=== PATIENT | male | born 1955 | race Caucasian/White ===

== ENCOUNTER 2016-08-17 19:22 | Emergency (ER) | payer MEDICAID, OTHER ==
[2016-08-17] MEDS ORDERED: HYDROcodone/APAP PREPAC 5/325 1 TAB TABLET PO ONE (20:25)
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
[2016-08-17] MEDS ORDERED: ONDANSETRON ODT PREPAC 4 MG TAB.RAPDIS PO ONE (20:30)
== END 2016-08-17 20:28 | disposition home or self-care (01) ==
LOC: ER 19:22
DX: S82.65XA Nondisplaced fracture of lateral malleolus of left fibula, initial encounter for closed fracture (principal); V03.00XA Pedestrian on foot injured in collision with car, pick-up truck or van in nontraffic accident, initial encounter; Y92.89 Other specified places as the place of occurrence of the external cause; Y93.89 Activity, other specified
CPT/HCPCS: 99284

== ENCOUNTER 2016-08-21 11:37 | Day surgery (SDC) | payer MEDICAID, OTHER ==
[2016-08-21] MEDS ORDERED: FENTANYL 100 MCG/2 ML VIAL IV PRN ×3 (11:42→11:59)
[2016-08-21] MEDS ORDERED: LIDOCAINE HCL 1% 20 ML VIAL SUBCUT ONE ×2 (11:42→11:59)
[2016-08-21] MEDS ORDERED: HYDROcodone/APAP 5/325 MG 1 TAB TABLET PO PRN (11:59)
[2016-08-21] MEDS ORDERED: HYDROmorphone HCL 1 MG/ML SYR IV PRN (11:59)
[2016-08-21] MEDS ORDERED: ONDANSETRON HCL 4 MG/2 ML VIAL IV PRN (11:59)
[2016-08-21] MEDS ORDERED: ceFAZolin 1 GM in NORMAL SALINE MINI-BAG+ 100 ML IV ONE (11:59)
[2016-08-21] MEDS ORDERED: LACTATED RINGERS 1,000 ML IV SCH ×3 (12:00)
[2016-08-21] MEDS ORDERED: FENTANYL 250 MCG/5 ML VIAL ONE (12:39)
[2016-08-21] MEDS ORDERED: BUPIVACAINE HCL/PF 0.25% 10 ML VIAL INJ ONE (12:40)
[2016-08-21] MEDS ORDERED: BUPIVACAINE/EPI 0.25% 1 VIAL VIAL ONE (12:44)
[2016-08-21] MEDS ORDERED: DEXAMETHASONE 4 MG/ML VIAL ONE (13:04)
[2016-08-21] MEDS ORDERED: ONDANSETRON HCL 4 MG/2 ML VIAL ONE (13:04)
[2016-08-21] MEDS ORDERED: KETOROLAC TROMETHAMINE 30 MG/ML VIAL ONE (13:40)
[2016-08-21 14:23] VITALS: TEMP 97.7
[2016-08-21 14:30] VITALS: O2SAT 94
[2016-08-21 14:59] VITALS: BP 130/79; PULSE 78; RESP 16
--- NOTE | 2016-08-21 15:19 | RADIOLOGY REPORT ---
Four limited views of the left ankle from the C-Arm in the operating room are compared with prior films dated 08/17/2016. There has been interval open reduction and internal fixation of the distal fibula fracture, which is secured with a plate and multiple screws. No other change is identified. IMPRESSION Interval open reduction and internal fixation of the left distal fibula fracture. MTDD
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
== END 2016-08-21 15:10 | disposition home or self-care (01) ==
LOC: SDS 11:37
PROVIDERS: ATTEND Orthopaedic Surgery
DX: S82.62XA Displaced fracture of lateral malleolus of left fibula, initial encounter for closed fracture (principal); V09.09XA Pedestrian injured in nontraffic accident involving other motor vehicles, initial encounter
CPT/HCPCS: 76000; C1713; J0690; J1885; J2405; J3010